=== PATIENT | male | born 1965 | race African-American/Black ===

== ENCOUNTER 2020-09-17 15:07 | Emergency (ER) | payer OTHER ==
[~2020-09-17] VITALS: Ht 172.7 cm; Wt 68.0 kg
[2020-09-17 15:32] VITALS: BP 120/75
--- NOTE | 2020-09-17 15:40 | NUR ---
VON MANDEL AT BEDSIDE FOR EVAL.
[2020-09-17] MEDS ORDERED: KETOROLAC TROMETHAMINE INJ 30 MG/ML VIAL IM ONE (16:00)
[2020-09-17] MEDS ORDERED: CYCLOBENZAPRINE 10 MG TABLET PO ONE (16:00)
--- NOTE | 2020-09-17 16:00 | NUR ---
PT IS BACK FROM THE CT SCAN.
[2020-09-17] MEDS ORDERED: KETOROLAC TROMETHAMINE INJ 30 MG/ML VIAL ONE (16:01)
[2020-09-17] MEDS ORDERED: CYCLOBENZAPRINE 10 MG TABLET ONE (16:01)
[2020-09-17] MEDS ORDERED: NAPR500T6 PO (16:36)
[2020-09-17] MEDS ORDERED: CYCL10TA9 PO (16:36)
--- NOTE | 2020-09-17 16:51 | NUR ---
Patient discharged to home in stable condition. Written and verbal after care instructions given. Patient verbalizes understanding of instruction.
== END 2020-09-17 16:52 | disposition home or self-care (01) ==
LOC: ER 15:10
DX: S33.5XXA Sprain of ligaments of lumbar spine, initial encounter (principal); F17.200 Nicotine dependence, unspecified, uncomplicated; Z60.2 Problems related to living alone; Y08.89XA Assault by other specified means, initial encounter; Y93.89 Activity, other specified; Y92.89 Other specified places as the place of occurrence of the external cause; Y99.8 Other external cause status
CPT/HCPCS: 72131; 96372; 99284; J1885